=== PATIENT | female | born 1970 | race Caucasian/White ===

== ENCOUNTER 2017-04-17 01:46 | Emergency (ER) | payer OTHER ==
[2017-04-17 01:53] VITALS: RESP 18
[2017-04-17] MEDS ORDERED: DEXAMETHASONE 10 MG/ML VIAL IVP ONE (02:10)
[2017-04-17] MEDS ORDERED: HALOPERIDOL LACT 5 MG/ML INJ IVP ONE (02:10)
[2017-04-17] MEDS ORDERED: KETOROLAC 15 MG/1 ML SDV IVP ONE (02:10)
--- NOTE | 2017-04-17 02:19 | EDPHY ---
H & P Stated Complaint: dizziness, headache and visual difficulty Time Seen by Provider: 04/17/17 01:54 HPI/ROS: Chief Complaint: Headache, blurry vision, face tingling HPI: 46-year-old woman began having a headache several hours ago, up to a 9/ 10. She then developed some tingling in the left side of her face and blurry vision in her left eye. She has a history of a migraine several years ago but has not have frequent migraine headaches. It was gradual in onset. Described as a throbbing headache on the left side of her face behind her eye. Has had some general mild dizziness for the last week or so. No fevers or chills. Some nausea, no vomiting. No abdominal pain. No difficulty ambulating or performing fine motor skills. Headache was not sudden onset. Not the worst headache of her life. ROS: 10 point Review of Systems is negative except as noted in the HPI. PMH: Migraine headache Medications: Multivitamins Allergies: No known drug allergies Social History: No smoking, no alcohol, no recreational drug use Family History: non-contributory Physical Exam: Gen: Awake, Alert, No Distress HEENT: Nose: no rhinorrhea Eyes: PERRLA, EOMI Mouth: Moist mucosa Neck: Supple, no JVD Chest: nontender, lungs clear to auscultation Heart: S1, S2 normal, no murmur Abd: Soft, non-tender, no guarding Back: no CVA tenderness, no midline tenderness Ext: no edema, non-tender Skin: no rash Neuro: CN II-XII intact, Sensation grossly intact, Strength 5/5 in bilateral upper and lower extremities, normal finger-nose, normal heel-pickens, negative Romberg. - Personal History LMP (Females 10-55): 8-14 Days Ago Current Tetanus/Diphtheria Vaccine: Yes Current Tetanus Diphtheria and Acellular Pertussis (TDAP): Yes - Medical/Surgical History Hx Asthma: No Hx Chronic Respiratory Disease: No Hx Diabetes: No Hx Cardiac Disease: No Hx Renal Disease: No Hx Cirrhosis: No Hx Alcoholism: No Hx HIV/AIDS: No Hx Splenectomy or Spleen Trauma: No Other PMH: choly, overy cyst - Social History Smoking Status: Never smoked Constitutional: Initial Vital Signs Temperature (C) 36.9 C 04/17/17 01:50 Heart Rate 68 04/17/17 01:50 Respiratory Rate 18 04/17/17 01:50 Blood Pressure 127/52 H 04/17/17 01:50 O2 Sat (%) 96 04/17/17 01:50 Allergies/Adverse Reactions: No Known Allergies Allergy (Unverified 04/17/17 01:52) Home Medications: Medication Instructions Recorded NK [No Known Home Meds] 04/17/17 Medical Decision Making - Diagnostics Imaging Results: CT scan of the brain is normal per Dr. Morrison. Imaging: Discussed imaging studies w/ c 13 catapult operator Radiologist ED Course/Re-evaluation: Patient is improved after migraine cocktail. CT scan of the brain is negative. She has no red flags for acute intracranial bleed, CVA or infection. Numbness symptoms have resolved. Will discharge with follow-up with primary care physician. - Data Points Medications Given: Discontinued Medications Dexamethasone (Decadron Injection) 10 mg IVP EDNOW ONE Stop: 04/17/17 02:11 Last Admin: 04/17/17 02:29 Dose: 10 mg Diphenhydramine HCl (Benadryl Injection) 25 mg IVP EDNOW ONE Stop: 04/17/17 02:11 Last Admin: 04/17/17 02:29 Dose: 25 mg Haloperidol Lactate (Haldol Injection) 2.5 mg IVP EDNOW ONE Stop: 04/17/17 02:11 Last Admin: 04/17/17 02:29 Dose: 2.5 mg Sodium Chloride (Ns) 1,000 mls @ 0 mls/hr IV ONCE ONE; Wide Open PRN Reason: Protocol Stop: 04/17/17 02:24 Last Admin: 04/17/17 02:27 Dose: 1,000 mls Ketorolac Tromethamine (Toradol) 15 mg IVP EDNOW ONE Stop: 04/17/17 02:11 Last Admin: 04/17/17 02:28 Dose: 15 mg Departure - Departure Disposition: Home, Routine, Self-Care Clinical Impression: Migraine headache Condition: Good Instructions: Migraine Headache (ED) Additional Instructions: Follow up with primary care physician in 3-4 days for re-evaluation. Return emergency depart for increasing headache, worsening numbness, weakness, fevers, chills, or any other concerns. Referrals: Jewel Bone MD [Medical Doctor] - As per Instructions
[2017-04-17] MEDS ORDERED: NS 1,000 ML IV ONE (02:23)
[2017-04-17 04:26] VITALS: BP 103/59; PULSE 63; TEMP 97.7; O2SAT 95
== END 2017-04-17 04:27 | disposition home or self-care (01) ==
DX: G43.909 Migraine, unspecified, not intractable, without status migrainosus (principal); E86.9 Volume depletion, unspecified
CPT/HCPCS: 96374; J1100; J1200; J1885